=== PATIENT | female | born 1975 | race Caucasian/White ===

== ENCOUNTER → 2016-03-26 | Outpatient (REF) ==
[~2016-03-26] MED LIST: CLEOCIN HCL300 MG PO; LEVEMIR100 U/ML SQ; LORTAB 5/500 501 TAB PO; NEURONTIN300 MG/CAP PO; NO HOME MEDICATIONS; NORCO 325 MG-51 TAB PO; VITAMIN D 400400 IU PO; ZYRTEC 10MG10 MG PO
[2016-03-26 15:44] LABS: THYROID STIMULATING HORMONE 2.43 uIU/mL (0.465-4.680)
== END ==
LOC: ZLAB.WCH 14:52
PROVIDERS: Family Medicine
DX: Z01.89 Encounter for other specified special examinations (principal)

== ENCOUNTER 2018-11-17 11:35 | Emergency (ER) | payer SELFPAY ==
[~2018-11-17] VITALS: Ht 162.6 cm; Wt 63.6 kg
[2018-11-17 11:45] VITALS: BP 164/92; TEMP 98.4
[2018-11-17] MEDS ORDERED: NOVOLOG FLEX100 U/ML SQ (12:00)
[2018-11-17] MEDS ORDERED: LANTUS100 U/ML SQ (12:00)
[2018-11-17] MEDS ORDERED: MULTI VITAMINS1 TAB PO (12:01)
[2018-11-17] MEDS ORDERED: CEPHALEXIN500 M1 PO (12:02)
[2018-11-17] MEDS ORDERED: DOXYCYCLINE 10100 MG PO (12:02)
[2018-11-17 13:10] VITALS: PULSE 64
== END 2018-11-17 13:11 | disposition home or self-care (01) ==
LOC: COL.ER 11:35
DX: L03.116 Cellulitis of left lower limb (principal); F17.210 Nicotine dependence, cigarettes, uncomplicated; E10.9 Type 1 diabetes mellitus without complications
CPT/HCPCS: J0696

== ENCOUNTER 2019-01-06 08:14 | Emergency (ER) | payer SELFPAY ==
[~2019-01-06] VITALS: Ht 162.6 cm; Wt 65.9 kg
[~2019-01-06 08:14] MED LIST changes: +CEPHALEXIN500 M1 PO; +DOXYCYCLINE 10100 MG PO; +LANTUS100 U/ML SQ; +MULTI VITAMINS1 TAB PO; +NOVOLOG FLEX100 U/ML SQ
[2019-01-06 08:21] VITALS: TEMP 97.4
[2019-01-06 08:36] LABS: COLLECTION METHOD CLEAN CATCH
[2019-01-06 08:42] LABS: MUCOUS Present /lpf; PH 6 (5-8); URINE APPEARANCE Hazy; URINE BACTERIA None Seen /hpf; URINE BILIRUBIN Negative (NEGATIVE); URINE BLOOD Negative (NEGATIVE); URINE COLOR Yellow; URINE GLUCOSE 3+ (NEGATIVE); URINE KETONE Negative (NEGATIVE); URINE LEUKOCYTE ESTERASE Negative (NEGATIVE); URINE NITRATE Negative (NEGATIVE); URINE PROTEIN(semi-quant) 1+ (NEGATIVE); URINE RBC 0-2 /hpf; URINE UROBILINOGEN Negative (NEGATIVE)
[2019-01-06 09:06] LABS: BASO % 0.3 % (0.0-2.0); EOS # 0.3 (0.0-0.7); EOS % 2.7 % (0-4.0); GRAN # 6.6 (1.4-6.5); GRAN % 71.6 % (42.2-75.2); HEMATOCRIT 43.1 % (37.0-47.0); HEMOGLOBIN 14.5 g/dl (12.5-16.0); LYMPH # 1.7 (1.2-3.4); LYMPH % 18.5 % (20.0-51.0); MEAN CELL VOLUME 82 fl (80.0-100.0); MEAN CORPUSCULAR HEMOGLOBIN 28 pg (27.0-31.0); MEAN CORPUSCULAR HGB CONC 34 g/dl (33.0-37.0); MONO # 0.6 (0.1-0.6); MONO % 6.6 % (1.7-9.3); PLATELET COUNT 207 K/mm3 (130-400); RED BLOOD COUNT 5.25 M/mm3 (4.10-5.30); REDCELL DISTRIBUTION WIDTH-CV 12.1 % (11.5-14.5)
[2019-01-06 09:19] LABS: ALANINE AMINOTRANSFERASE 14 U/L (9-52); ALKALINE PHOSPHATASE 68 U/L (50-136); ANION GAP 8 mmol/L (7-16); AST,SGOT 18 U/L (15-37); BILIRUBIN,TOTAL 0.2 mg/dL (0.0-1.0); BLOOD UREA NITROGEN 19 mg/dL (7-17); CALCIUM 9.4 mg/dL (8.4-10.2); CARBON DIOXIDE 26 mmol/L (22-30); CHLORIDE 102 mmol/L (98-107); CREATININE, serum 0.85 (0.52-1.25); GLUCOSE 202 mg/dL (74-106); POTASSIUM 4.5 mmol/L (3.4-5.0); SODIUM 136 mmol/L (137-145); TOTAL PROTEIN 6.9 gm/dL (6.4-8.2)
[2019-01-06 09:21] LABS: C-REACTIVE PROTEIN < 0.5 mg/dL (0.0-0.9)
[2019-01-06 10:12] VITALS: BP 135/69; PULSE 92
== END 2019-01-06 10:12 | disposition home or self-care (01) ==
LOC: COL.ER 08:14
PROVIDERS: Physician Assistant
DX: R53.81 Other malaise (principal); J98.01 Acute bronchospasm; E10.9 Type 1 diabetes mellitus without complications; Z88.2 Allergy status to sulfonamides; F17.210 Nicotine dependence, cigarettes, uncomplicated
CPT/HCPCS: J1100; J2405; J7030

== ENCOUNTER → 2019-01-22 | Outpatient (CLI) | payer OTHER | LOC: COL.RAD 10:00 | DX: R05 Cough (principal); R91.8 Other nonspecific abnormal finding of lung field; F17.200 Nicotine dependence, unspecified, uncomplicated; Z90.49 Acquired absence of other specified parts of digestive tract | CPT/HCPCS: Q9967 ==

== ENCOUNTER → 2019-08-31 | Outpatient (CLI) | payer SELFPAY | LOC: COL.RAD 12:21 | DX: M48.061 Spinal stenosis, lumbar region without neurogenic claudication (principal); G95.9 Disease of spinal cord, unspecified ==

== ENCOUNTER 2019-10-10 00:33 | Emergency (ER) | payer SELFPAY ==
[~2019-10-10] VITALS: Ht 162.6 cm; Wt 68.0 kg
[2019-10-10 00:38] VITALS: TEMP 98.3
[2019-10-10 01:02] LABS: COLLECTION METHOD CLEAN CATCH
[2019-10-10 01:21] LABS: ALANINE AMINOTRANSFERASE 16 U/L (4-34); ALKALINE PHOSPHATASE 104 U/L (50-136); ANION GAP 7 mmol/L (7-16); AST,SGOT 19 U/L (15-37); BILIRUBIN,TOTAL 0.4 mg/dL (0.0-1.0); BLOOD UREA NITROGEN 19 mg/dL (7-17); C-REACTIVE PROTEIN 1.2 mg/dL (0.0-0.9); CALCIUM 9.5 mg/dL (8.4-10.2); CARBON DIOXIDE 26 mmol/L (22-30); CHLORIDE 96 mmol/L (98-107); CREATININE, serum 0.81 (0.52-1.25); POTASSIUM 4.2 mmol/L (3.4-5.0); SODIUM 129 mmol/L (137-145)
[2019-10-10 01:30] LABS: BASO % 0.4 % (0.0-2.0); EOS # 0.3 (0.0-0.7); EOS % 2.8 % (0-4.0); GRAN % 64.4 % (42.2-75.2); HEMATOCRIT 43.9 % (37.0-47.0); HEMOGLOBIN 15.1 g/dl (12.5-16.0); LYMPH # 2.8 (1.2-3.4); LYMPH % 25.7 % (20.0-51.0); MEAN CELL VOLUME 83 fl (80.0-100.0); MEAN CORPUSCULAR HEMOGLOBIN 29 pg (27.0-31.0); MEAN CORPUSCULAR HGB CONC 34 g/dl (33.0-37.0); MONO # 0.7 (0.1-0.6); MONO % 6.3 % (1.7-9.3); PLATELET COUNT 188 K/mm3 (130-400); RED BLOOD COUNT 5.27 M/mm3 (4.10-5.30); REDCELL DISTRIBUTION WIDTH-CV 12.5 % (11.5-14.5)
[2019-10-10 01:34] LABS: ACETAMINOPHEN < 10 ug/mL (10-30); ALCOHOL(ethanol),MEDICAL < 10 mg/dL; GLUCOSE 525 mg/dL (74-106); PROLACTIN 17.8 ng/mL (3.0-18.6); SALICYLATE < 1.0 mg/dL
[2019-10-10 01:35] LABS: MUCOUS Present /lpf; PH 6 (5-8); URINE APPEARANCE Clear; URINE BACTERIA None Seen /hpf; URINE BILIRUBIN Negative (NEGATIVE); URINE BLOOD 1+ (NEGATIVE); URINE COLOR Straw; URINE GLUCOSE 3+ (NEGATIVE); URINE KETONE Negative (NEGATIVE); URINE LEUKOCYTE ESTERASE Negative (NEGATIVE); URINE NITRATE Negative (NEGATIVE); URINE PROTEIN(semi-quant) 2+ (NEGATIVE); URINE RBC 0-2 /hpf; URINE UROBILINOGEN Negative (NEGATIVE)
[2019-10-10 01:45] LABS: TROPONIN-I 0.013 ng/mL (0.000-0.035)
[2019-10-10 01:46] LABS: TRICYCLIC ANTIDEPRESS URINE NEGATIVE
[2019-10-10 01:57] LABS: INR 0.9 (0.8-3.0); PROTHROMBIN TIME 9.9 SECONDS (9.7-12.8)
[2019-10-10 03:16] VITALS: BP 129/76; PULSE 56
== END 2019-10-10 03:35 | disposition short-term general hospital (02) ==
LOC: COL.ER 00:33
PROVIDERS: Emergency Medicine
DX: R56.9 Unspecified convulsions (principal); E11.9 Type 2 diabetes mellitus without complications; Z79.4 Long term (current) use of insulin; Z20.828 Contact with and (suspected) exposure to other viral communicable diseases
CPT/HCPCS: J1815; J1953; J2060; J7030; Q9967

== ENCOUNTER 2020-01-13 13:57 | Inpatient (IN) | payer OTHER ==
[~2020-01-13] VITALS: Ht 172.7 cm; Wt 70.7 kg
--- NOTE | 2020-01-13 | NUR ---
TELE STARTED. ACCUCHECK 202. SSI GIVEN.
[2020-01-13 14:37] LABS: BASO % 0.4 % (0.0-2.0); EOS # 0.4 (0.0-0.7); EOS % 3.6 % (0-4.0); GRAN # 7.7 (1.4-6.5); GRAN % 72.9 % (42.2-75.2); HEMATOCRIT 41.8 % (37.0-47.0); HEMOGLOBIN 14.2 g/dl (12.5-16.0); LYMPH # 1.9 (1.2-3.4); LYMPH % 18.1 % (20.0-51.0); MEAN CELL VOLUME 84 fl (80.0-100.0); MEAN CORPUSCULAR HEMOGLOBIN 28 pg (27.0-31.0); MEAN CORPUSCULAR HGB CONC 34 g/dl (33.0-37.0); MEAN PLATELET VOLUME 10.5 fl (7.4-10.4); MONO # 0.5 (0.1-0.6); MONO % 4.5 % (1.7-9.3); PLATELET COUNT 251 K/mm3 (130-400); REDCELL DISTRIBUTION WIDTH-CV 12.8 % (11.5-14.5)
[2020-01-13 14:56] LABS: ALANINE AMINOTRANSFERASE 24 U/L (4-34); ALBUMIN 3.5 gm/dL (3.5-5.0); ALKALINE PHOSPHATASE 91 U/L (50-136); ANION GAP 4 mmol/L (7-16); AST,SGOT 33 U/L (15-37); BILIRUBIN,TOTAL 0.4 mg/dL (0.0-1.0); BLOOD UREA NITROGEN 13 mg/dL (7-17); CALCIUM 9.1 mg/dL (8.4-10.2); CARBON DIOXIDE 29 mmol/L (22-30); CHLORIDE 101 mmol/L (98-107); CREATININE, serum 0.75 (0.52-1.25); GLUCOSE 246 mg/dL (74-106); POTASSIUM 4.7 mmol/L (3.4-5.0); SODIUM 134 mmol/L (137-145); TOTAL PROTEIN 6.2 gm/dL (6.4-8.2)
[2020-01-13 15:01] LABS: ALCOHOL(ethanol),MEDICAL < 10 mg/dL
[2020-01-13 15:13] LABS: TROPONIN-I < 0.012 ng/mL (0.000-0.035)
[2020-01-13 15:26] LABS: TSH w REFLEX 0.643 uIU/mL (0.465-4.680)
[2020-01-13 16:52] LABS: COLLECTION METHOD CLEAN CATCH
[2020-01-13 17:00] LABS: PH 6 (5-8); SQUAMOUS EPITHELIAL None Seen /hpf; URINE APPEARANCE Clear; URINE BACTERIA None Seen /hpf; URINE BILIRUBIN Negative (NEGATIVE); URINE BLOOD Negative (NEGATIVE); URINE COLOR Yellow; URINE GLUCOSE 3+ (NEGATIVE); URINE KETONE Negative (NEGATIVE); URINE LEUKOCYTE ESTERASE Negative (NEGATIVE); URINE NITRATE Negative (NEGATIVE); URINE PROTEIN(semi-quant) 2+ (NEGATIVE); URINE RBC 0-2 /hpf; URINE UROBILINOGEN Negative (NEGATIVE)
[2020-01-13 17:20] LABS: TRICYCLIC ANTIDEPRESS URINE NEGATIVE
[2020-01-13] MEDS ORDERED: ZOLOFT 100MG100 MG PO (20:40)
[2020-01-13] MEDS ORDERED: LIPITOR 40MG TA40 MG PO (20:40)
[2020-01-13] MEDS ORDERED: NEURONTIN100 MG/CAP PO (20:40)
[2020-01-13] MEDS ORDERED: KEPPRA 500MG500 MG PO (20:41)
[2020-01-13] MEDS ORDERED: PRINIVIL5 MG PO (20:41)
[2020-01-13] MEDS ORDERED: BUSPAR DIVIDOSE15 MG PO (20:42)
[2020-01-13] MEDS ORDERED: ASPIRIN 81M81 MG/TA2 PO (20:42)
[2020-01-13] MEDS ORDERED: LEVEMIR100 U/ML SQ (20:45)
--- NOTE | 2020-01-13 23:34 | NUR ---
PT ADMITTED PER BED TO ROOM 325 FROM ER. PT SLEEPING. NO RESP DISTRESS. THIS NURSE PROVIDING 1:1 CARES D/T CONFUSION. CALL LIGHT IN REACH. BED ALARM SET.PT CONTINUES SLEEPING.
[2020-01-13 23:56] LABS: MAGNESIUM 1.9 mg/dL (1.6-2.3); PHOSPHOROUS 3.8 mg/dL (2.5-4.5)
--- NOTE | 2020-01-14 00:13 | NUR ---
NOTIFIED LUIS ALFREDO GO OF PHOS/ MAG RESULTS ORDERED.
[2020-01-14 00:45] VITALS: BP 165/83; PULSE 61; TEMP 97.6
--- NOTE | 2020-01-14 01:41 | NUR ---
PT RESTLESS AT TIMES BUT RETURNS TO SLEEP. PT REFUSES TO WEAR MASK WHILE 1:1 SITTER-RN IN ROOM.
[2020-01-14 04:19] VITALS: BP 171/73; PULSE 62; TEMP 97.6
--- NOTE | 2020-01-14 05:39 | NUR ---
PT STILL SLEEPING WITH OCCASIONAL AWAKENES AND RETURNS TO SLEEP. ABLE TO TUCK ARMS UNDERNEATH HER WHEN ATTEMPTING B/P OR ACCUCHECK. PT PULLS B ACK WITH NEURO ASSESSMENT WITH LIGH OF RT EYE AND NO RESPONSE TO LT EYE. STRETCHES OUT BOTH LEGS PERIODICALLY IN BED WHEN REPOSITIONING. EYES WILL BARELY OPEN WITH PAINFUL STIMULI BUT PULLS AWAY, PT HAS REMAINED NPO. HAS NOT VOIDED YET. IV STILL INFUSING TO RT HAND. SECURED SITE WITH COBAN. HAS 1:1 NURSE SITTING WITH HER. NO DISTRESS NOTED.
[2020-01-14 08:00] VITALS: BP 126/75; PULSE 61; TEMP 98.2
--- NOTE | 2020-01-14 08:00 | NUR ---
VSS. HEAD TO TOE ASSESSMENT DONE, SEE NOTES. PT LAYING IN BED. DOES NOT RESPOND WHEN QUESTIONED. MOVES AWAY FROM STIMULUS AND REPOSITIONS SELF. TRIED GIVING AM MEDS, PT WOULD NOT AROUSE, WILL TRY AGAIN LATER. PT NPO FOR MRI LATER TODAY. PT HAS PADDING ON BED RAILS FOR SEIZURE PRECAUTIONS. BLADDER SCAN DONE BECAUSE NOT VOIDING, 185 NOTED. SITTER IN ROOM. CALL LIGHT IN REACH.
--- NOTE | 2020-01-14 09:10 | NUR ---
HOSPITALIST CARE TEAM ROUNDING. PATIENT WILL OCCATIONALLY SPONTANIOUSLY OPEN HER EYES OR REPOSITION HERSELF HOWEVER, WILL NOT TALK, INTERACT, OR COOPERATE. PATIENT JUST SLEEPS. NURSING TRIED TO GIVE HER SCHEDULED MEDS, PATIENT WOULD NOT OPEN HER MOUTH AND TURNED AWAY. WILL TRY AGAIN LATER.
--- NOTE | 2020-01-14 10:37 | NUR ---
DADA attended clinical rounds. The patient was sleeping and would not answer questions. SW contacted the patient's fiance, Edna Suárez (ph#[phone]), to discuss discharge plan. Edna reports that the patient and her are engaged. They live in [place]. Edna reports that the patient is independent with ADLs and she does not have any DME. She sometimes helps the patient wash her back. Edna states that the patient started outpatient PT this week at [place]. The patient receives primary care at [facility] and she receives her medications from [facility]. The patient is self pay. Edna reports that the patient has already applied for Medicaid and disability. Financial Counseling was consulted and confirmed the patient is pending disability. Edna reports that the patient does not have a DPOA-HC completed. She states that the patient is not , does not have any children, her parents are not alive, and she has no siblings. She states that the patient just has her and an aunt. Edna states that she is unsure of what the aunt's name is right now, but that the aunt is not doing well. Edna reports no concerns with the patient returning back home with her upon discharge. She states that they plan on continuing outpatient PT at [facility] upon discharge and already have a follow up appointment scheduled there. SW to continue to follow.
[2020-01-14 11:00] VITALS: BP 152/67; PULSE 60; TEMP 97.5
--- NOTE | 2020-01-14 11:40 | NUR ---
PATIENT GOING DOWN TO MRI
--- NOTE | 2020-01-14 12:11 | NUR ---
PATIENT BACK FROM MRI
--- NOTE | 2020-01-14 14:41 | NUR ---
Patient did not respond or follow commands during EEG, however, once EEG was finished patient did sit up when asked and seemed less confused. Patient then told this GARBAGE TRUCK DRIVER that she needed to use the restroom and wanted the TV on. SHREDDER/GRANULATOR OPERATOR in room at this time to help. Wilbert Patterson, GARBAGE TRUCK DRIVER
[2020-01-14 16:32] VITALS: BP 158/72; PULSE 62; TEMP 97.4
--- NOTE | 2020-01-14 19:48 | NUR ---
PATIENT UP OUT OF BED, PARTIAL TO BATHROOM, STATING NEEDING TO URINATE, PUT PATIENT ON BSC , TELE IN PLACE STILL WITH IVF INFUSING WITHOUT DISRUPTION. BED ALARM ON AND LOUD/FUNCTIONING. PATIENT VERBALIZED SINGLE SENTENCE "I NEED TO GO TO THE BATHROOM" WITH NO FURTHER VOCALIZATIONS FROM PATIENT DESPITE QUESTIONS FROM STAFF.
--- NOTE | 2020-01-14 20:00 | NUR ---
Assessment complete. Patient has impulsively gotten out of bed, setting off bed alarm, to use the restroom. Gait is unsteady but she is able to be assisted to [facility] where she voids 700 ml. Patient is very confused, calling out for her partner, Edna and her dog Santiago. Edna is contacted via telephone and attempts to calm patient down with no success. At this time, patient is becoming increasingly agitated and begins to wave her arms at this RN. A one time ativan order is obtained.
[2020-01-14 20:17] VITALS: BP 167/73; PULSE 60; TEMP 98.2
[2020-01-15] VITALS (7 sets, daily range): BP systolic 158–188; BP diastolic 60–84; PULSE 59–71; TEMP 97.3–98.3
[2020-01-15 11:50] LABS: ALBUMIN 3.1 gm/dL (3.5-5.0); BILIRUBIN,TOTAL 0.4 mg/dL (0.0-1.0); CALCIUM 8.5 mg/dL (8.4-10.2); CREATININE, serum 0.59 (0.52-1.25); POTASSIUM 3.8 mmol/L (3.4-5.0); TOTAL PROTEIN 5.8 gm/dL (6.4-8.2)
[2020-01-15 11:54] LABS: HEMATOCRIT 40.8 % (37.0-47.0); HEMOGLOBIN 13.6 g/dl (12.5-16.0); MEAN CELL VOLUME 84 fl (80.0-100.0); MEAN CORPUSCULAR HEMOGLOBIN 28 pg (27.0-31.0); MEAN CORPUSCULAR HGB CONC 33 g/dl (33.0-37.0); MEAN PLATELET VOLUME 10.6 fl (7.4-10.4); PLATELET COUNT 237 K/mm3 (130-400); RED BLOOD COUNT 4.88 M/mm3 (4.10-5.30); REDCELL DISTRIBUTION WIDTH-CV 12.7 % (11.5-14.5)
--- NOTE | 2020-01-15 12:30 | NUR ---
Patient slept all morning, minimally interactive with staff, now Patient awake. Gear Machine Operator General assisted patient to bedside commode. She voided. was able to understand how to use commode. Then this nurse at bedside & attempted to assist patient with pureed lunch. Patient refused. Attempted to give ordered medications whole and then crushed. Patient refused and spit them back at staff. Made hospitalist aware. Patient aggitated. high fall risk followed.
--- NOTE | 2020-01-15 13:45 | NUR ---
Patient up to chair, very restless. Calling for Mick. Attempt to re oriented. Patient not aware of where she is, can not state her birthday. ASA Suppository given, since patient refused pills. Iv apresoline for elevated BP. Cnas sitting with patient to prevent her from falling. Patietn keeps spiting on the floor. Asked her to please stop. She is also coughing, trying hard to keep mask on patint, but she is not compliant.
--- NOTE | 2020-01-15 15:30 | NUR ---
Patient continues to be restless and aggitated. She is now hitting at staff, being combative. Spiting at staff, Biting at her IV. Hospitalist notified, Shell aware that she is now a safety hazard to herself & staff. Low dose ativan order given. This nurse remains at bedside for patient safety. Patient remains unoriented. Continues to call out for Edna & Santiago. Attempt to oriented unsuccessful. Offered food, no interest. Will continues to closely monitor & follow fall risk protocol.
--- NOTE | 2020-01-15 16:10 | NUR ---
Cony sitting at edge of bed. Continues to call out for Edna & Santiago. Refuses to lay down. She remain not oriented. Nurse at bedside for high fall risk prevention.
--- NOTE | 2020-01-15 17:50 | NUR ---
Patient sitting up in bed. yelling out. cursing at staff. Refuses food.
--- NOTE | 2020-01-15 19:21 | NUR ---
CHANGE OF SHIFT REPORT FROM DAY SHIFT NURSE.
--- NOTE | 2020-01-15 20:00 | NUR ---
PATIENT AGITATED, CONFUSED AND NOT COOPERATIVE WELL VERBALIZING ABUSIVE LANGUAGE/CURSING. DOES NOT FOLLOW COMMANDS AT TIMES, PATIENT IS RESISTIVE TO SAFETY MEASURES, STANDING UP, NOT CALLED FOR HELP, ATTEMPTING TO HEAD BUTT STAFF, VERBALIZING VIOLENCE WITH STAFF SITTING WITH PATIENT. IVF TO R HAND INFUSING. TELE IN PLACE. PATIENT ON ROOM AIR.
[2020-01-16 03:58] VITALS: BP 131/68; PULSE 64; TEMP 98.1
--- NOTE | 2020-01-16 07:16 | NUR ---
CHANGE OF SHIFT REPORT GIVEN TO DAY SHIFT NURSEMISSY.
--- NOTE | 2020-01-16 10:50 | NUR ---
Patient up to bedside commode, voided. Attempted to feed her. She refused. Attmpted to give PO am medication & she spit them back out at staff . Hosptalist team rounded and made aware. Continue to follow high fall risk protocol. Patient not oriented to time or place, not able to state her birthday. Patient contines to yell out for Santiago & Edna. unsuccessful at re orienting.
--- NOTE | 2020-01-16 11:23 | NUR ---
SW update was about to make contact with Life partner Edna [phone]. Discussed changes to care and need for placement. Educated patient on placement options. LP reports that she wants the patient placed in town. LP indicated that they do not have the finances to support the patient going to placement. Educated on financial coach support and making referral to . Send refferals to [facility], [facility], and [facility]. Covid Swab today. LP refused placement outside of [facility]. DADA educated what that looks like. Will continue to follow.
[2020-01-16 12:49] VITALS: BP 168/70; PULSE 61; TEMP 97.7
--- NOTE | 2020-01-16 13:00 | NUR ---
Patient up to bedside commode, voided. Attempted to give bedbath, but swinging at staff. new linens on bed. Unable to change gown. Tried to give patinet lunch. she refused. She refused to drink and liquids as well. Attempted to call her partner, no answer. Spoke to partner earlier in the day and gave her an update on patient conditions.
--- NOTE | 2020-01-16 14:45 | NUR ---
Patient again becoming more aggitated & irritated with staff. Using curse words. Picking at her face, she made herself bleed. Prn Ativan given for patient & staff safety. Patient continues to refuse to wear her mask. Coughing at times. Covid swab pending.
[2020-01-16 15:39] VITALS: BP 137/82; PULSE 78; TEMP 97.3
--- NOTE | 2020-01-16 17:12 | NUR ---
Staff has remained at bedside this afternoon for patient safety. She has been sitting at the edge of the bed. She did speak to Edna on her cell phone this afternoon. Tele remains on. Bp improved this evening. Blood sugar stable. Ivf per orders to Iftikhar. She continues to talk out to Santiago & Edna. Yawning, she seems tired. Try to lay her down, but refuses. High fall risk protocol followed.
--- NOTE | 2020-01-16 19:03 | NUR ---
RECEIVED CHANGE OF SHIFT REPORT FROM DAY SHIFT NURSE.
--- NOTE | 2020-01-16 19:18 | NUR ---
Patient continues to be aggitated & irritated. Rosa villafuerte remains at bedside. She continues to sit at edge of bed calling out for Santiago & Edna. Patient bitting at staff. Mitts on at this time, to prevent her from pulling out her IV.
[2020-01-16 19:33] VITALS: BP 158/86; PULSE 70; TEMP 97.3
--- NOTE | 2020-01-16 20:00 | NUR ---
WHEN AWAKE, PATIENT COMBATIVE, SPITTING ON STAFF, REFUSES TO WEAR FACE MASK/FACE SHIEL. PATIENT ATTEMPTS TO BITE STAFF OR HITTING STAFF AND VERBALLY AGGRESSIVE AND ABUSIVE TO STAFF/D.O. SITTER. TELE IN PLACE. IV SITE IN PLACE TO BACK TO RIGHT HAND. PATIENT EARLIER ATTEMPTING TO PULL OUT IV SITE FROM BACK TO RIGHT HAND, ALLIE HAND MITTS APPLIED TO BOTH HANDS WHILE PATIENT HITTING AT STAFF AND PULLING AT IV LINE. PATIENT REFUSING TO TAKE SIPS OF ORAL LIQUIDS OR MEDS, SPITTING OUT LIQUIDS AT TIMES AT STAFF. WHEN AWAKE PATIENT CONSTANTLY MOVING AROUND IN BED, SITTING UP AT SIDE OF BED UNDER STAFF SUPERVISION, PATIENT VERBALLY REFUSING TO HAVE STAFF TOUCH HER AT TIMES RARELY ASKING STAFF TO HELP HER LAY DOWN OR GET MOVED UP IN BED.
--- NOTE | 2020-01-17 01:30 | NUR ---
PATIENT SLEEPING CURRENTLY, FSBS AND VS NOT DONE DUE TO PATIENT SLEEPING AND ONGOING COMBATIVE/AGGRESSIVE/AGITATED BEHAVIORS SINCE THEIR ADMISSION TO PROMOTE PATIENT REST AND SAFETY.
[2020-01-17 04:00] VITALS: BP 124/71
--- NOTE | 2020-01-17 04:00 | NUR ---
PATIENT'S LIFE PARTNER, CHEVY, CALLED FOR UPDATED PATIENT STATUS, INFORMED OF PATIENT, STILL NOT TAKING ORAL MEDS, CONTINUES WITH IV KEPPRA AND IV FLUIDS, THAT PATIENT IS NOT DRINKING PO FLUIDS CONSISTANTLY, ENCOURAGED LIFE PARTNER TO CALL BACK WHEN PROVIDERS HAVE ROUNDED AND CAN BE AVAILABLE TO ANSWER HER QUESTIONS REGARDING PATIENT'S PROGNOSIS/PROGRESS/DISCHARGE PLANNING.
--- NOTE | 2020-01-17 07:14 | NUR ---
CHANGE OF SHIFT REPORT GIVEN TO DAY SHIFT NURSEHOMERO.
[2020-01-17 08:06] VITALS: BP 144/66; PULSE 83; TEMP 98.2
--- NOTE | 2020-01-17 09:00 | NUR ---
CAME TO CONSULT ON AMS. SEE ORDERS.
[2020-01-17 12:00] VITALS: BP 137/62; PULSE 78; TEMP 97.2
--- NOTE | 2020-01-17 14:50 | NUR ---
Unable to speak with pt at all. She is being very verbal and resisting care at this time. Hx of striking out, spitting. I am advised that life partner works nights so encouraged to wait until later in the afternoon to contact her. From information given, it does not appear that pt has living relatives involved in her life at all. Will seek clarification from social work administrator.
--- NOTE | 2020-01-17 14:50 | NUR ---
PATIENT INCREASINGLY AGGITATED AT TIMES. PATIENT YELLING OUT FOR HER MOM AND . PATIENT IS CONFUSED AND WONT ANSWER QUESTIONS. PATIENT KEEPS TRYING TO GET OUT OF BED AND PULLS AT IV. IV SITE COVERED IN COBAN. SITTER AT BEDSIDE.
--- NOTE | 2020-01-17 15:37 | NUR ---
Spoke with life partner Edna Suárez by phone with Yuki LEO and Avelina Marrero RN on the line. We explained to Edna that Nazia has been quite agitated this afternoon. Edna replied that "I called her and was talking with her when she asked me to come get her, I told her 'in good time' and she hung up on me". She a Nazia have been together for about 3 years. I asked her if Nazia had ever talked about what she might want in a situation like this. Edna replied that Nazia had told her she would not want to go to a mcc--she would want to be at home. She also reported that Nazia had not wanted any tubes placed in her abdomen for feeding. She had said earlier, before this stroke, that she would rather than go to a mcc. Edna is aware that Nazia situation has changed from the previous stroke and states "I am not sure what she would want at this time". She does verify that Edna has no living relatives in her life at this point. She did respond that she would be willing to be a guardian for Nazia, if that was needed. We will wait for the psych consult before pursuing further action on this.
[2020-01-17 16:00] VITALS: BP 145/88; PULSE 71; TEMP 97.5
--- NOTE | 2020-01-17 16:47 | NUR ---
Resource Center Teacher and Avelina Palliative RN contacted patient's life partner, Edna to discuss goals of care. See palliative note for further detail. DADA advised Edna that she followed up with each local SNF: [facility], [facility], and [facility] and all three have declined referral. DADA advised Edna that referrals will have to be sent out of town and Edna verbalized understanding. DADA also advised Edna that a psych consult had been ordered to determine capacity. Edna advised that if patient would need a court appointed guardian, that she would be willing to fill that role. DADA spoke with RN, Blanca who reports that per Dr. Todd, Psychiatrist, patient will need court appointed guardian. DDAA emailed Thom Quinones, consumer attorney and notified Sima, Paediatric Thoracic Physician. DADA also faxed referrals to [facility], [facility], and [facility]. DADA will follow up with additional referrals tomorrow. DADA collaborated with Ember Financial Counselor who advised patient's partner, Edna has applied for Medicaid for patient. DADA will continue to follow.
[2020-01-17 18:22] VITALS: BP 145/88; PULSE 71; TEMP 97.5
[2020-01-17 20:09] VITALS: BP 159/85; PULSE 74; TEMP 97.3
--- NOTE | 2020-01-17 20:45 | NUR ---
Pt. laying in bed with sitter at bedside. Pt. is alert and confused. Shift assessment complete. IV to lt. forearm patent, IV fluids infusing per orders. Pt. does not appear to be in pain at this time. Call light within reach, bed alarm on.
[2020-01-18 04:00] VITALS: BP 112/40
[2020-01-18 06:32] LABS: BASO % 0.2 % (0.0-2.0); EOS # 0.3 (0.0-0.7); EOS % 2.7 % (0-4.0); GRAN # 7.7 (1.4-6.5); GRAN % 74.4 % (42.2-75.2); HEMOGLOBIN 12.5 g/dl (12.5-16.0); LYMPH # 1.7 (1.2-3.4); LYMPH % 16.2 % (20.0-51.0); MEAN CELL VOLUME 83 fl (80.0-100.0); MEAN CORPUSCULAR HEMOGLOBIN 28 pg (27.0-31.0); MEAN CORPUSCULAR HGB CONC 34 g/dl (33.0-37.0); MEAN PLATELET VOLUME 10.1 fl (7.4-10.4); MONO # 0.6 (0.1-0.6); MONO % 6.2 % (1.7-9.3); PLATELET COUNT 219 K/mm3 (130-400); RED BLOOD COUNT 4.41 M/mm3 (4.10-5.30); REDCELL DISTRIBUTION WIDTH-CV 12.6 % (11.5-14.5)
[2020-01-18 06:39] LABS: CALCIUM 8.7 mg/dL (8.4-10.2); CREATININE, serum 0.56 (0.52-1.25); POTASSIUM 3.3 mmol/L (3.4-5.0)
[2020-01-18 06:41] LABS: HEMATOCRIT 36.4 % (37.0-47.0)
[2020-01-18 08:00] VITALS: BP 145/73; PULSE 71; TEMP 97.8
--- NOTE | 2020-01-18 11:31 | NUR ---
PT COMBATIVE THIS AM. ABLE TO CALM DOWN BY WALKING TEJEDA LOOPS SEVERAL TIMES. AND TEAM ROUNDED. SEE COMPUTER FOR ORDERS. PT IS ALERT BUT CONFUSED. CONSULTED YESTERDAY. INVESTMENT ANALYST ATTEMPTING TO FACILITATE GAURDIANSHIP FOR PT. PROCESS HAS BEGUN. ONCE ESTABLISHED PLAN ON DISCHARGE TO A REHAB FACILITY.
[2020-01-18 11:32] VITALS: BP 151/76; PULSE 69; TEMP 98
--- NOTE | 2020-01-18 13:38 | NUR ---
Pt observed several times today and seems to be talking more but not making a lot of sense. She was screaming out Edna's name into her phone but no one was on the line. Her gait is very broadbased and irregular with her therapist having to keep her from falling several times. She was refusing both food and beverage earlier this morning. After her previous stroke, she reportedly had told Edna that she did not want to go to a long term--would rather . She had also made it clear to Edna that she did not want a tube in her abdomen although I am not sure how she is feeling now. The process of getting a gaurdian named for Nazia has begun. At this point it seems very unlikely that pt would be able to return home.
[2020-01-18 16:00] VITALS: BP 177/78; PULSE 75; TEMP 97.6
--- NOTE | 2020-01-18 16:38 | NUR ---
Loan Adviser contacted patient's partner, Edna to assist in completing Guardianship Questionairre for patient. Edna provided as much information as she had available. Edna did indicate that patient was the one who submitted a Medicaid Application for herself, so Edna does not know when this was submitted. Edna states patient has not received any letters from [employer] at this time. Edna did state that patient has received correspondence from Social Security requesting additional information. DADA emailed completed Guardianship Questionairre to Thom Quinones, [employer] Sales And Marketing Intern and Senior Advisor. DADA provided Report and Examination paperwork to Hospitalist. DADA contacted [facility] and was advised by Chata that they cannot meet patient's needs. DADA also spoke with Omayra at [facility] who advised they cannot meet patient's needs[facility] was advised they cannot [facility] at this time. DADA faxed additional referrals to [facility], [facility], [facility], [facility], and [facility]. DADA will continue to follow up with facilities on referrals.
--- NOTE | 2020-01-18 16:43 | NUR ---
PT BECOMMING VERY AGITATED PACING HALLS AND FIGHTING WITH STAFF. IV ATIVAN GIVEN ORDERED. BACK IN ROOM AT THIS TIME.
--- NOTE | 2020-01-18 20:40 | NUR ---
Pt. sitting up at bedside with sitter at bedside. Pt. is alert confused. IV to lt. forearm patent, IV fluids infusing per orders. Pt. did agree to take evening meds. Pt. denies pain or other needs, call light within reach. Sitter to remain at bedside.
[2020-01-18 20:44] VITALS: BP 174/96; PULSE 75; TEMP 97.8
[2020-01-19 00:45] VITALS: BP 168/84; PULSE 83; TEMP 98.2
[2020-01-19 04:00] VITALS: BP 155/74; PULSE 69; TEMP 97.7
[2020-01-19 06:17] LABS: BASO % 0.2 % (0.0-2.0); EOS # 0.2 (0.0-0.7); EOS % 2.3 % (0-4.0); GRAN # 6.2 (1.4-6.5); GRAN % 72.9 % (42.2-75.2); HEMOGLOBIN 12.4 g/dl (12.5-16.0); LYMPH # 1.5 (1.2-3.4); LYMPH % 17.6 % (20.0-51.0); MEAN CELL VOLUME 83 fl (80.0-100.0); MEAN CORPUSCULAR HEMOGLOBIN 29 pg (27.0-31.0); MEAN CORPUSCULAR HGB CONC 35 g/dl (33.0-37.0); MEAN PLATELET VOLUME 10.8 fl (7.4-10.4); MONO # 0.6 (0.1-0.6); MONO % 6.6 % (1.7-9.3); PLATELET COUNT 188 K/mm3 (130-400); REDCELL DISTRIBUTION WIDTH-CV 12.7 % (11.5-14.5)
[2020-01-19 06:20] LABS: HEMATOCRIT 35.8 % (37.0-47.0)
[2020-01-19 06:33] LABS: CALCIUM 8.5 mg/dL (8.4-10.2); CREATININE, serum 0.58 (0.52-1.25); POTASSIUM 3.2 mmol/L (3.4-5.0)
--- NOTE | 2020-01-19 14:11 | NUR ---
Pt observed today being more calm and able to eat her breakfast and lunch without difficulty. Has been walking with PT with irregular wide-based gait and requires assistance as easily becomes off balanced. Has talked with Edna today by phone. We are waiting for guardianship to be completed through the courts and then we can move forward.
--- NOTE | 2020-01-19 16:26 | NUR ---
Air Valve Mechanic scanned and emailed Physician Exam and Report to attorneys, Thom Quinones and Rad Williamson. DADA spoke with Alia at [facility] who advised they cannot accept referral due to patient's behaviors. DADA also spoke with Sandi at [facility] who advised they also cannot accept referral at this time. DADA faxed additional referrals to [facility] and [facility]. Both facilities report they are full at this time but will still screen referral. DADA contacted Madiha at [facility] to discuss referral. Madiha advised they are on an admissions hold but are hopeful to be taking new admits soon. Madiha advised they do have a locked behavioral unit and can take people who are Medicaid/Disability Pending. Madiha stated they would require Guardianship to be established prior to considering an admit. DADA faxed referral to Madiha for review. DADA will continue to follow.
[2020-01-19 16:31] VITALS: BP 159/82; PULSE 72
--- NOTE | 2020-01-19 18:07 | NUR ---
Patient less aggitated today, she has been up multiple times and walked in the halls with CARD DEALER, gait unsteady. Gaitbelt used. High fall risk protocol followed. Patient has spoke on the phone to her significant other Edna. She has been tearful and upset she is unable to visit. Reviewed visitor policy with patient. Patient ate well at lunch, but refused dinner & breakfast. Patient took her pills today. Trying to get patient to complete her potassium protocol. Bessy ASENCIO order replacement today when she was nofitied of k+3.2. Int to [facility]. Vss. Additional lisinopril given & tolerated. Sitter has been used alot today. Social work assisting in discharge planning. Will report off to night nurse
[2020-01-19 19:37] VITALS: BP 159/77; PULSE 60; TEMP 98.3
--- NOTE | 2020-01-19 22:17 | NUR ---
PT IN BED WITH HOB ELEVATED TO 30 DEGREE ANGLE. PT REFUSES TO PARTICIPATE WHEN ASK TO DO A TASK AND HAS NOT SPOKEN. PT DENIES PAIN OR DISCOMFORT BY NODDING NO. PT RESTING AT THIS TIME. CALL LIGHT WITHIN REACH.
[2020-01-19 23:50] VITALS: BP 149/70; PULSE 65; TEMP 97.6
[2020-01-20 04:22] VITALS: BP 152/79; PULSE 58; TEMP 98
--- NOTE | 2020-01-20 04:56 | NUR ---
SHIFT SUMMARY: PT STAYED ASLEEP MOST OF THE NIGHT. PT DID AT BEGINNING OF SHIFT NOT LOOK AT ME OR COOPORATE WITH NEURO CHECKS, BUT IN THE MIDDLE OF THE SHIFT AROUND MIDNIGHT, SHE WAS MORE TALKATIVE AND COOPORATIVE, THEN IN THE MORNING AROUND 0400, SHE WAS FOLLOWING COMMANDS BUT DID NOT WANT TO TALK AGAIN. WHEN WHE WAS TALKING SHE EXPRESSED THAT SHE MISSED HER DOG AND LIVE-PARTNER. PT IS IN BED WITH CALL LIGHT WITHIN REACH AND BED ALARM ON. NO NEEDS AT THIS TIME. NO ISSUES THIS SHIFT.
[2020-01-20 06:19] LABS: BASO % 0.4 % (0.0-2.0); EOS # 0.3 (0.0-0.7); GRAN # 4.3 (1.4-6.5); GRAN % 59.9 % (42.2-75.2); HEMOGLOBIN 12.4 g/dl (12.5-16.0); LYMPH # 2.1 (1.2-3.4); LYMPH % 28.7 % (20.0-51.0); MEAN CELL VOLUME 84 fl (80.0-100.0); MEAN CORPUSCULAR HEMOGLOBIN 29 pg (27.0-31.0); MEAN CORPUSCULAR HGB CONC 35 g/dl (33.0-37.0); MEAN PLATELET VOLUME 10.9 fl (7.4-10.4); MONO # 0.5 (0.1-0.6); MONO % 6.7 % (1.7-9.3); PLATELET COUNT 199 K/mm3 (130-400); RED BLOOD COUNT 4.27 M/mm3 (4.10-5.30); REDCELL DISTRIBUTION WIDTH-CV 12.8 % (11.5-14.5)
[2020-01-20 06:24] LABS: HEMATOCRIT 35.8 % (37.0-47.0)
[2020-01-20 06:33] LABS: CALCIUM 8.9 mg/dL (8.4-10.2); CREATININE, serum 0.65 (0.52-1.25); POTASSIUM 3.4 mmol/L (3.4-5.0)
[2020-01-20 08:09] VITALS: BP 159/70; PULSE 67; TEMP 98.6
--- NOTE | 2020-01-20 10:29 | NUR ---
AM SHIFT ASSESSMENT COMPLETE. PATIENT REPORTING MILD DISCOMFORT AT INCISION SITES. ABDOMINAL LAP SITES DIRECTOR OF DIRECT MARKETING WITH EDGES WELL APPROXIMATED. [place] ARENAS PA-C CALLED AND NOTIFIED OF HOSPITALIST AND SURGEON SIGNING OFF. [place] TO ENTER DISCHARGE ORDERS.
[2020-01-20 11:58] VITALS: BP 159/79; PULSE 64; TEMP 97.7
--- NOTE | 2020-01-20 12:00 | NUR ---
PATIENT STARTED ON CLEAR LIQUID GASTRIC BYPASS DIET. PATIENT TOLERATING WELL AT THIS TIME. PATIENT REPORTS THAT SHE IS NOW BURPING.
--- NOTE | 2020-01-20 13:05 | NUR ---
NEURO CHECKS CHANGED TO ONCE PER SHIFT PER ORDER GIVEN FROM LUIS M COVARRUBIAS. ORDER CHANGED BY THIS NURSE.
[2020-01-20 16:21] VITALS: BP 156/73; PULSE 70; TEMP 98.1
--- NOTE | 2020-01-20 16:24 | NUR ---
Boiler Room Operator spoke with Rad Williamson, Modeler who advised they will submit for Guardianship either this afternoon or tomorrow morning. Patient's life partner, Edna will be granted temporary Guardianship once filed. DADA collaborated with Madiha at [facility] who advised they are still screening referral but could possibly be open for admissions for traumatic brain injuries early next week. DADA collaborated with Jana, Financial Counselor about Guardianship. Once Edna is granted temporary Guardianship, she will be able to sign releases so the financial team can contact [facility] about Medicaid application status. DADA contacted Edna to provide update. DADA advised that [facility] is considering referral. Edna felt that this placement may be too far away, as she feels patient needs to be able to have visitors. DADA explained that even if patient found more local placement, most to all local SNF's are not allowing visitors at this time. DADA also advised that at this time, has not had any accepting facilities in the local area. Edna verbalized understanding. DADA will continue to follow.
--- NOTE | 2020-01-20 17:19 | NUR ---
LUIS M COVARRUBIAS CALLED AND NOTIFIED THAT THE PATIENT IS TAKING IN ADEQUATE PO. TORB TO CHANGE BLOOD SUGAR CHECKS TO ACHS FROM LUIS M COVARRUBIAS TO THIS NURSE.
--- NOTE | 2020-01-20 18:45 | NUR ---
PATIENT HAD UNEVENTFUL SHIFT. NEURO CHECKS STABLE. PATIENT TOLERATING DIET WITHOUT DIFFICULTIES. PATIENT REMAINS IMPULSIVE. BED ALARMS ON. PATIENT CURRENTLY RESTING IN BED AT THIS TIME. WILL REPORT OFF TO ONCOMING NURSE.
[2020-01-20 19:31] VITALS: BP 156/63; PULSE 68; TEMP 98.2
--- NOTE | 2020-01-20 21:50 | NUR ---
Pt. sitting up in bed at this time. Pt. is alert and oriented to time, self and place. Pt. will also have conversations that do not make sense so some altered mental status still noted. Shift assessment complete. INT to lt. forearm patent. Pt. denies pain or other needs, call light within reach.
[2020-01-21 03:47] VITALS: BP 146/86; PULSE 56; TEMP 98.8
[2020-01-21 08:02] VITALS: BP 177/92; PULSE 63; TEMP 98.7
--- NOTE | 2020-01-21 08:15 | NUR ---
PATIENT SHIFT ASSESSMENT COMPLETE AND AM MEDICATIONS GIVEN. PATIENT DENIES PAIN THIS MORNING. NEURO CHECKS STABLE AND INTACT. PATIENT ANSWERS QUESTIONS APPROPRIATELY AND IS A&OX4 WITH SOME INTERMITTENT CONFUSION IN CONVERSATIONS. PATIENT AMBULATED WITH STAFF TO THE BATHROOM WITH SBA. PATIENT RETURNED TO BED, CALL LIGHT IN REACH. PATIENT DENIES ANY NEEDS AT THIS TIME.
[2020-01-21 08:47] LABS: MAGNESIUM 1.7 mg/dL (1.6-2.3)
[2020-01-21 11:20] VITALS: BP 135/68; PULSE 62; TEMP 98.1
--- NOTE | 2020-01-21 14:20 | NUR ---
PATIENT REPOSITIONED WITH PILLOW ELEVATING RLE AND ICE PACK APPLIED TO RIGHT HIP.
--- NOTE | 2020-01-21 15:44 | NUR ---
REQUEST FOR PATIENT PSYCHIATRIC RE-EVALUATION ON FRIDAY FAXED TO DR. LAWTON'S OFFICE PER LUIS M COVARRUBIAS'S REQUEST.
[2020-01-21 15:55] VITALS: BP 134/61; PULSE 58; TEMP 98.6
--- NOTE | 2020-01-21 16:36 | NUR ---
Drum Barker Operator faxed clinical updates to Madiha at [facility]. DADA also spoke with LUIS M Goff who advised that patient has made great improvement in orientation and is able to have a conversation with her. Shell advised that patient may be able to make her own medical decisions at this time. Psych follow up ordered and patient to be re-evaluated by Dr. Todd on Friday. DADA updated Thom Quinones, Environmental Quality Analyst and Rad Williamson, Environmental Quality Analyst.
[2020-01-21 20:43] VITALS: BP 146/69; PULSE 55; TEMP 98.2
--- NOTE | 2020-01-21 20:57 | NUR ---
PT MEDICATED WITH HS MEDS INCLUDING SEROQUEL FOR ANXIETY AND TYLENOL FOR HEADACHE. IS ALERT, ORIENTED X3. CONVERSATION OFF INTERMITTENTENLY AND TALKS OF SPOILING HER PUPPY FOR RENAN. SL TO LEFT FOREARM FLUSHES WELL. SEIZURE PRECAUTIONS IN PLACE. BED ALARM ON FOR SAFETY.
[2020-01-22] VITALS (7 sets, daily range): BP systolic 101–152; BP diastolic 53–76; PULSE 53–68; TEMP 97.6–98.8
--- NOTE | 2020-01-22 06:00 | NUR ---
TAKES AM MED WITHOUT PROBLEM. NO SEIZURE ACTIVITY THIS SHIFT.
[2020-01-22 07:04] LABS: HEMATOCRIT 37.3 % (37.0-47.0); HEMOGLOBIN 12.7 g/dl (12.5-16.0); MEAN CELL VOLUME 84 fl (80.0-100.0); MEAN CORPUSCULAR HEMOGLOBIN 29 pg (27.0-31.0); MEAN CORPUSCULAR HGB CONC 34 g/dl (33.0-37.0); MEAN PLATELET VOLUME 11.2 fl (7.4-10.4); PLATELET COUNT 182 K/mm3 (130-400); RED BLOOD COUNT 4.45 M/mm3 (4.10-5.30); REDCELL DISTRIBUTION WIDTH-CV 12.5 % (11.5-14.5)
--- NOTE | 2020-01-22 07:12 | NUR ---
PT SLEEPING IN BED, BED IN LOW, CALLL LIGHT WITHIN REACH, BED ALARM ON.
[2020-01-22 07:17] LABS: CALCIUM 9.2 mg/dL (8.4-10.2); CREATININE, serum 0.77 (0.52-1.25); POTASSIUM 3.8 mmol/L (3.4-5.0)
--- NOTE | 2020-01-22 18:34 | NUR ---
PT'S SIGNIFICANT OTHER UPDATED ON PLAN OF CARE. PT DENIED PAIN TODAY. WAS VERY PLEASANT AND ALER AND MOSTLY ORIENTED. PT DOES MAKE ODD STATEMENTS THAT DON'T FIT SOMETIMES.
--- NOTE | 2020-01-22 19:47 | NUR ---
Medicated with HS meds including Tylenol 650mg po for headache. Is alert, oriented x2. Bed alarm on for safety, ambulates with staff to bathroom, gait slightly unsteady, back to bed with supervision. Seizure precautions in place. SL to left forearm without redness or swelling.
--- NOTE | 2020-01-23 03:32 | NUR ---
Pt has used the call light each time when needing to go to the bathroom. Bed alarm on for safety.
[2020-01-23 04:22] VITALS: BP 133/80; PULSE 68; TEMP 97.9
[2020-01-23 06:49] LABS: BASO % 0.2 % (0.0-2.0); EOS # 0.2 (0.0-0.7); EOS % 2.5 % (0-4.0); GRAN % 71.3 % (42.2-75.2); HEMOGLOBIN 13.7 g/dl (12.5-16.0); LYMPH # 1.8 (1.2-3.4); LYMPH % 21.3 % (20.0-51.0); MEAN CELL VOLUME 84 fl (80.0-100.0); MEAN CORPUSCULAR HEMOGLOBIN 29 pg (27.0-31.0); MEAN CORPUSCULAR HGB CONC 34 g/dl (33.0-37.0); MEAN PLATELET VOLUME 11.2 fl (7.4-10.4); MONO # 0.4 (0.1-0.6); MONO % 4.5 % (1.7-9.3); PLATELET COUNT 198 K/mm3 (130-400); RED BLOOD COUNT 4.77 M/mm3 (4.10-5.30); REDCELL DISTRIBUTION WIDTH-CV 12.5 % (11.5-14.5)
--- NOTE | 2020-01-23 06:54 | NUR ---
PT SLEEPING IN BED AT BEDSIDE SHIFT REPORT, CALL LIGHT WITHIN REACH, BED IN LOW.
[2020-01-23 06:57] LABS: CALCIUM 9.6 mg/dL (8.4-10.2); CREATININE, serum 0.76 (0.52-1.25); POTASSIUM 3.8 mmol/L (3.4-5.0)
[2020-01-23 07:52] VITALS: BP 140/68; PULSE 65; TEMP 98.1
[2020-01-23 10:54] VITALS: BP 98/56; PULSE 70; TEMP 97.8
[2020-01-23 15:00] VITALS: BP 135/69; PULSE 72; TEMP 97.9
--- NOTE | 2020-01-23 17:31 | NUR ---
PT DOING WELL TODAY, DENIES PAIN. DID NOT EAT LUNCH BECAUSE SHE WAS NAUSEOUS SO NO INSULIN GIVEN AT THIS TIME. TUMS GIVEN AND PT DID NOT C/O NAUSEA AGAIN. AROUND 1500 PT STARTED BECOMING MORE CONFUSED AND HER SPEECH MAKING LESS SENSE. SHE KEPT SITTING UP ON EDGE OF BED AND CALLING HER FIANCE OVER AND OVER. PO ORDER FOR ATIVAN RECEIEVED BY RENAE MÁRQUEZ, 0.25 MG GIVEN. PT IS RESTING MORE AT THIS TIME.
[2020-01-23 19:56] VITALS: BP 139/71; PULSE 63; TEMP 98.3
--- NOTE | 2020-01-23 20:00 | NUR ---
Medicated with HS meds including Seroquel for anxiety. Is alert, oriented x3. Placed new SL to left forearm for telemetry protocol. Assisted to bathroom with standby, gait slightly wobbly. Back to bed with bed alarm on.
[2020-01-24] VITALS (7 sets, daily range): BP systolic 98–139; BP diastolic 45–90; PULSE 58–67; TEMP 97.8–98.3
[2020-01-24 06:42] LABS: CALCIUM 9.5 mg/dL (8.4-10.2); CREATININE, serum 1.05 (0.52-1.25); POTASSIUM 4.5 mmol/L (3.4-5.0)
[2020-01-24 06:43] LABS: BASO % 0.5 % (0.0-2.0); EOS # 0.4 (0.0-0.7); EOS % 4.5 % (0-4.0); GRAN # 4.6 (1.4-6.5); GRAN % 59.9 % (42.2-75.2); HEMATOCRIT 40.7 % (37.0-47.0); HEMOGLOBIN 13.5 g/dl (12.5-16.0); LYMPH # 2.2 (1.2-3.4); LYMPH % 28.1 % (20.0-51.0); MEAN CELL VOLUME 84 fl (80.0-100.0); MEAN CORPUSCULAR HEMOGLOBIN 28 pg (27.0-31.0); MEAN CORPUSCULAR HGB CONC 33 g/dl (33.0-37.0); MEAN PLATELET VOLUME 11.8 fl (7.4-10.4); MONO # 0.5 (0.1-0.6); MONO % 6.6 % (1.7-9.3); PLATELET COUNT 196 K/mm3 (130-400); RED BLOOD COUNT 4.82 M/mm3 (4.10-5.30); REDCELL DISTRIBUTION WIDTH-CV 12.5 % (11.5-14.5)
--- NOTE | 2020-01-24 08:15 | NUR ---
Patient lying in bed with eyes open. Patient is confused on location and dates. Reoriented patient. Denies pain. Assisted to upright position to eat breakfast. Denies additional needs.
--- NOTE | 2020-01-24 11:44 | NUR ---
Lying in bed working with speech therapy. Denies pain or further needs at this time.
--- NOTE | 2020-01-24 15:05 | NUR ---
Sitting on edge of bed with eyes open. Denies pain at this time. Patient requests to use bathroom, assist patient into bathroom. Voids and returns to room, washes hands, returns to bed. Provided fresh ice water. Patient expresses that she is upset that she is not able to go home. Reassurance and support provided to the patient. Denies additional needs at this time.
--- NOTE | 2020-01-24 16:45 | NUR ---
Fill Manager contacted Madiha at [facility] who advised they are not accepting admissions again and she should have an answer very soon about if they can clinically accept or not. Madiha did request updates after patient is re-evaluated by Dr. Todd, Psychiatrist today. If patient does not need a Guardian, Madiha would like for patient to designate DPOA-HC prior to admit. Since patient has made improvements in cognition and behaviors, DADA contacted [facility], [facility], [facility], [facility], and [facility] to request they re-review referral. DADA faxed clinical updates. Alia at [facility] advised they recently had three positives so she is unsure what their admission status is. DADA met with patient who was aware of her name, location, the current month, and year. Patient signed releases on information so that Jana, Financial Counselor can contact [facility] about the status of her Medicaid Application. Patient verbalized understanding that SW was working on placement and that she will need rehab before returning home. DADA reviewed referrals that have been sent and patient is agreeable to which ever placement option can take her. DADA contacted Sade at the [facility] Agency on Aging and left a message as patient will need a brain injury assessment before [facility] can accept. DADA reviewed Dr. Todd's note this afternoon which advised patient now has capacity to make her own health care decisions. DADA emailed Aix Administrator and attorneys with this update. DADA will continue to follow.
--- NOTE | 2020-01-24 17:06 | NUR ---
Receive call from the patient's life partner, Edna, and she says that the patient called her and told her that she was being discharged. Explain that I was in another patient room and that I would call her back. COntacted Edna back and explain that Dr. Todd was in and evaluated her and said that the patient is able to make her own decisions. Explain that she is not being discharged at this time and that it is still encouraged that she go to a facility for rehab. Edna verbalizes understanding. This nurse speaks with the patient and explains that Dr. Todd says that she can make her own decisions and that she is not being discharged at this time and that it is encouraged for her to go to a rehab facility to continue to get stronger. Patient says that she agrees. Patient sitting on edge of bed. Denies any additional needs at this time. Is ready to eat dinner.
--- NOTE | 2020-01-24 20:27 | NUR ---
PT AWAKE, READY FOR HS MEDS AND ASKS FOR SEROQUEL FOR ANXIETY AND SLEEP. TAKES MEDS WITHOUT PROBLEM. SL TO LEFT FOREARM FLUSHES WELL. IS ALERT AND ORIENTED X3. BED ALARM FOR SAFETY, GAIT REMAINS SLIGHTLY UNSTEADY.
[2020-01-25 04:00] VITALS: BP 107/61; PULSE 63; TEMP 97.9
[2020-01-25 07:22] VITALS: BP 109/52; PULSE 66; TEMP 97.6
--- NOTE | 2020-01-25 07:25 | NUR ---
Sitting on edge of bed eating breakfast. Assist into bathroom to urinate. Returns to room and washes hands and returns to side of bed. Patient is alert. For the most part oriented but does have a hard time picking words to say at times. Has scabs on arms that she occasionally picks at and they will bleed. Patient says that she would like to shower today but wants to wait until after her therapy sessions. Denies needs at this time.
[2020-01-25 07:59] LABS: HEMATOCRIT 37.4 % (37.0-47.0); HEMOGLOBIN 12.6 g/dl (12.5-16.0); MEAN CELL VOLUME 85 fl (80.0-100.0); MEAN CORPUSCULAR HEMOGLOBIN 29 pg (27.0-31.0); MEAN CORPUSCULAR HGB CONC 34 g/dl (33.0-37.0); MEAN PLATELET VOLUME 11.6 fl (7.4-10.4); PLATELET COUNT 179 K/mm3 (130-400); RED BLOOD COUNT 4.39 M/mm3 (4.10-5.30); REDCELL DISTRIBUTION WIDTH-CV 12.6 % (11.5-14.5)
[2020-01-25 08:07] LABS: CREATININE, serum 1.1 (0.52-1.25); POTASSIUM 4.5 mmol/L (3.4-5.0)
[2020-01-25 08:23] LABS: EOSINOPHIL 3 % (0-4); NEUTROPHILS 71 % (42.0-75.2); PLATELET ESTIMATE NORMAL (NORMAL)
[2020-01-25 08:25] LABS: LYMPHOCYTE 23 % (20.0-51.0)
--- NOTE | 2020-01-25 10:08 | NUR ---
I met with Nazia this morning. She reports that she is aware she had been very ill and is grateful that she has improved as much as she has. She certainly expresses ability to make her decisions--but will ask Edna, life partner for opinion and discussion. She has worked with Edna through multiple issues that troubled one or the other of them and feels that they are able to talk things out well. She shows great insight into going to rehab to try to imrpove the skills she will need to take care of herself and doesn't want to be a burden to Nazia. This couple does not have a car so traveling any distance is concerning. Pt seems quite pleased with her progess and is willing to work hard to be able to eventually return home with Edna. Support provided.
--- NOTE | 2020-01-25 10:57 | NUR ---
Yuki, social media marketer, asks this nurse to call nurse coordinator at [facility] as they had some questions from the nursing standpoint. Contacted them and spoke with Una. Abhay asked if patient was cooperative with therapies and taking medications. Explained that the patient is very cooperative with those tasks. Explain that when she was first brought to our unit it was hard to get her to follow tasks and she was impulsive and at times verbally abusive to the staff. Explained that for the past several days she has not acted in that manner and is very cooperative with all tasks.
[2020-01-25 11:31] VITALS: BP 126/73; PULSE 73; TEMP 98.1
--- NOTE | 2020-01-25 11:33 | NUR ---
OT in room with the patient. They will assist patient with taking shower and oral care. Patient denies needs at this time.
--- NOTE | 2020-01-25 13:54 | NUR ---
Sitting up in bed. Denies pain or needs. Speech in room to work with the patient.
--- NOTE | 2020-01-25 15:21 | NUR ---
Beam Builder Helper and DADA Saenz met with patient to discuss Durable Power of Cash Register Mechanic for Health Care. Patient verbalized understanding and stated in her own words that she would want her life partner, Edna Suárez to make healthcare decisions for her if she were unable to. Patient did not want to designate an alternate at this time. DADA and DADA Saenz provided witness signature. DADA provided original and copies to patient then placed a copy in patient's chart. DADA collaborated with Jana, Financial Counselor who advised she contacted [facility] and patient's application for Medicaid has been pending as patient did not provide her signature at the end of the application she submitted. DADA met with patient and obtained her signature on the last page of the application, the provided this to Jana who faxed it into [facility]. Jana advised SW that she would not be able to obtain a copy of the Medicaid application as it was originally submitted by patient. DADA contacted Madiha at [facility] and faxed clinical updates. Madiha advised that their physician can clinically accept patient, but that they would like patient's RN to contact their RN reviewer, Rekha to discuss patient. DADA coordinated phone call between patient's RN, Yamilet and RN, Rekha. Madiha states that they can clinically accept, but would need to work on financially accepting. Madiha states that she will have to check in with her financial team as they typically require a copy of the Medicaid Application. DADA then contacted Sade at the [facility] Agency on Aging to follow up on brain injury screening, which is another requirement of [place]. Sade advised that Shirring Machine Operator, Paula would conduct screening over the phone. DADA contacted Paula and left a message. DADA contacted patient's partner, Edna to provide update.
--- NOTE | 2020-01-25 15:30 | NUR ---
Cafe Operator faxed referral to [facility] in [place] and left a message for Tiara, Gas Combustion Engineer. DADA spoke with Mickie at [facility] who advised they are currently full and did not think they would consider someone who is Medicaid pending. DADA also contacted Amelie, [facility] Director to give referral.
--- NOTE | 2020-01-25 15:35 | NUR ---
System Archive Analyst contacted Paula, Cooker Tender and scheduled brain injury screening for tomorrow at 0900. Screening assessment will be done by phone and DADA will coordinate. DADA faxed records to Paula at [phone].
[2020-01-25 16:11] VITALS: BP 138/67; PULSE 62; TEMP 98.2
--- NOTE | 2020-01-25 18:05 | NUR ---
Sitting up in bed talking on cell phone and joking around with staff. Patient says that she wishes she could have a Big Mac. Would like to see if she could eat "normal food" and not have to have her meat mechanically ground. Explained that we could address this tomorrow with the speech therapist. Patient denies additional needs at this time.
--- NOTE | 2020-01-25 19:22 | NUR ---
RECEIVED CHANGE OF SHIFT REPORT FROM DAY SHIFT NURSE.
[2020-01-25 19:40] VITALS: BP 134/70; PULSE 65; TEMP 98.6
[2020-01-25 23:54] VITALS: BP 132/65; PULSE 86; TEMP 97.8
[2020-01-26 04:24] VITALS: BP 117/60; PULSE 63; TEMP 97.7
--- NOTE | 2020-01-26 05:27 | NUR ---
PATIENT RESTED QUIETLY THROUGH MOST OF SHIFT WITH NO C/O THROUGH MOST OF THE SHIFT AT THIS TIME. TELE IN PLACE. SALINE LOCK IN PLACE. OBSERVED BREATHING NONLABORED AND EVEN THROUGH MOST OF SHIFT.
[2020-01-26 06:40] LABS: BASO % 0.3 % (0.0-2.0); CALCIUM 9.4 mg/dL (8.4-10.2); CREATININE, serum 1.12 (0.52-1.25); EOS # 0.4 (0.0-0.7); EOS % 4.9 % (0-4.0); GRAN # 5.2 (1.4-6.5); GRAN % 58.2 % (42.2-75.2); HEMATOCRIT 38.9 % (37.0-47.0); HEMOGLOBIN 12.9 g/dl (12.5-16.0); LYMPH # 2.6 (1.2-3.4); LYMPH % 28.6 % (20.0-51.0); MEAN CELL VOLUME 86 fl (80.0-100.0); MEAN CORPUSCULAR HEMOGLOBIN 28 pg (27.0-31.0); MEAN CORPUSCULAR HGB CONC 33 g/dl (33.0-37.0); MEAN PLATELET VOLUME 11.9 fl (7.4-10.4); MONO # 0.7 (0.1-0.6); MONO % 7.8 % (1.7-9.3); PLATELET COUNT 185 K/mm3 (130-400); POTASSIUM 4.9 mmol/L (3.4-5.0); RED BLOOD COUNT 4.55 M/mm3 (4.10-5.30); REDCELL DISTRIBUTION WIDTH-CV 12.6 % (11.5-14.5)
--- NOTE | 2020-01-26 07:05 | NUR ---
Change of shift report given to day shift nurseYamilet.
[2020-01-26 08:04] VITALS: BP 121/73; PULSE 73; TEMP 97.4
--- NOTE | 2020-01-26 08:09 | NUR ---
Patient sitting up in bed eating breakfast. Alert and oriented x4. At times has difficulty finding appropriate words. Denies pain. Patient would like to get back on regular food and not mechanically ground food. Patient says that she does not have teeth or dentures and she has always been able to eat her food without difficulty. Explain that we will discuss further with speech. Patient denies additional needs at this time.
[2020-01-26 10:44] VITALS: BP 140/74; PULSE 58; TEMP 98.3
--- NOTE | 2020-01-26 10:46 | NUR ---
Patient up in halls ambulating with PT. Returns to room. Having a headache and would like Tylenol. Vital signs stable. Neuro checks WNL. Patient says that her mind is exhausted from all the questions she has been asked this morning to get into IPR. Will administer Tylenol at this time. Patient will rest in bed.
[2020-01-26 11:32] VITALS: BP 127/72; PULSE 46; TEMP 98.6
--- NOTE | 2020-01-26 12:44 | NUR ---
Sanitation Associate collaborated with Angelika of [facility] and was advised they will be able to accept patient later today. DADA met with patient to notify her and patient expressed that she was glad to be able to stay here in town. DADA also contacted patient's partner, Edna to provide update. Edna will be dropping off [facility] paperwork for SW as she needs some assistance with completing it. DADA contacted [facility], [facility], and [facility] to notify them that patient will discharge to [facility]. Patient had an assessment completed by Paula, Records Technician at the [facility] Agency on Aging this morning. Paula contacted DADA and advised that once patient's Medicaid is approved, patient will qualify for the TBI Waiver. DADA provided this update to patient and patient's partner, Edna. Patient to discharge to [facility] later today.
[2020-01-26 15:55] VITALS: BP 114/63; PULSE 61; TEMP 98.5
--- NOTE | 2020-01-26 16:07 | NUR ---
Patient to IPR status, room 334, at this time.
[2020-01-26] MEDS ORDERED: ZESTRIL30 MG PO (16:27)
[2020-01-26] MEDS ORDERED: LOVENOX 4040 MG/0.4 SQ (16:28)
[2020-01-26] MEDS ORDERED: PLAVIX 75MG TAB75 MG PO (16:29)
[2020-01-26] MEDS ORDERED: NICODERM C21 MG/PATC TD (16:29)
[2020-01-26] MEDS ORDERED: PROTONIX 40MG T40 MG PO (16:30)
[2020-01-26] MEDS ORDERED: SEROQUEL 2525 MG/TAB PO (16:32)
[2020-01-26] MEDS ORDERED: TYLENOL 325MG325 MG PO (16:33)
== END 2020-01-26 16:08 | DRG 65 ==
LOC: COL.ER 13:57 → SURG 20:25
PROVIDERS: Nurse Practitioner Family; Nurse Practitioner Primary Care; Physician Assistant; Student in an Organized Health Care Education/Training Program; ADMIT Hospitalist
DX: I63.9 Cerebral infarction, unspecified (principal); F05 Delirium due to known physiological condition; G93.49 Other encephalopathy; R00.1 Bradycardia, unspecified; I10 Essential (primary) hypertension; E78.5 Hyperlipidemia, unspecified; E11.9 Type 2 diabetes mellitus without complications; E87.6 Hypokalemia; Z20.828 Contact with and (suspected) exposure to other viral communicable diseases; F41.9 Anxiety disorder, unspecified; F17.210 Nicotine dependence, cigarettes, uncomplicated; F32.9 Major depressive disorder, single episode, unspecified; K30 Functional dyspepsia; Z88.2 Allergy status to sulfonamides; Z88.1 Allergy status to other antibiotic agents; Z79.4 Long term (current) use of insulin
CPT/HCPCS: 99231-AI; 99232-AI; 99239; A9585; C9113; G0378; J0360; J1650; J1815; J1953; J2060; J7030

== ENCOUNTER 2020-01-26 15:54 | Inpatient (IN) | payer OTHER ==
[~2020-01-26] VITALS: Ht 162.6 cm; Wt 67.4 kg
[~2020-01-26 15:54] MED LIST changes: +ASPIRIN 81M81 MG/TA2 PO; +BUSPAR DIVIDOSE15 MG PO; +KEPPRA 500MG500 MG PO; +LIPITOR 40MG TA40 MG PO; +NEURONTIN100 MG/CAP PO; +PRINIVIL5 MG PO; +ZOLOFT 100MG100 MG PO
--- NOTE | 2020-01-26 16:17 | NUR ---
Patient changed from inpatient room 325 to [facility] status room 334. Patient is alert and oriented x4. At times has difficulty choosing the appropriate word to use but is able to think and choose appropriate words. Denies pain at this time. Lungs clear to auscultation. Heart rate regular. Bowel sounds audible in all quadrants. Patient does have scabs noted to both arms, occasionally picks at them and causes them to bleed. Patient expresses that she is excited to get into rehabilitation and is ready to get stronger so that she can get home. Patient oriented to room. Denies needs.
[2020-01-26] MEDS ORDERED: ZESTRIL30 MG PO (16:27)
[2020-01-26] MEDS ORDERED: LOVENOX 4040 MG/0.4 SQ (16:28)
[2020-01-26] MEDS ORDERED: NICODERM C21 MG/PATC TD (16:29)
[2020-01-26] MEDS ORDERED: PLAVIX 75MG TAB75 MG PO (16:29)
[2020-01-26] MEDS ORDERED: PROTONIX 40MG T40 MG PO (16:30)
[2020-01-26] MEDS ORDERED: SEROQUEL 2525 MG/TAB PO (16:32)
[2020-01-26 16:33] VITALS: BP 114/63; PULSE 61; TEMP 98.5
[2020-01-26] MEDS ORDERED: TYLENOL 325MG325 MG PO (16:33)
--- NOTE | 2020-01-26 19:39 | NUR ---
RECEIVED CHANGE OF SHIFT REPORT FROM DAY SHIFT NURSETRAVIS.
[2020-01-27 04:42] VITALS: BP 118/63; PULSE 68; TEMP 97.6
--- NOTE | 2020-01-27 06:59 | NUR ---
CHANGE OF SHIFT REPORT GIVEN TO DAY SHIFT NURSECOLLIN.
[2020-01-27 08:09] VITALS: BP 120/60; PULSE 64; TEMP 98.5
--- NOTE | 2020-01-27 14:12 | NUR ---
Cnc Mill Set Up Operator met with patient to complete intake as patient is new to [facility]. Patient lives in [place] with her life partner, Edna Suárez (ph#[phone]). Patient has been utilizing the [facility] for primary care but is also open to switching to [facility] if it will benefit her. Patient has been using [facility] for medications. Patient is Medicaid/Disability pending and Jana Financial Counselor is working with [facility] to get approval. Patient had an assessment with the [facility] Agency on Aging and patient will qualify for the TBI Waiver once Medicaid is approved. Patient has Advance Directives which designate her life partner, Edna. Patient does not have any DME and advised she was independent with ADLS prior to being hospitalized. SW will continue to follow for discharge needs.
[2020-01-27 16:16] VITALS: BP 142/72; PULSE 72; TEMP 97.3
--- NOTE | 2020-01-27 20:00 | NUR ---
Patient sitting up in bed resting. Alert and oriented x 3. Assessment complete. Occassionally has difficulties choosing correct word. Scabs to BUE noted. Patient up to restroom with SBA and walker. Denies pain at this time. Denies further needs at this time.
[2020-01-28 04:46] VITALS: BP 116/72; PULSE 59; TEMP 98
--- NOTE | 2020-01-28 05:37 | NUR ---
Patient has done well throughout the night. Minimal needs. Has been up multiple times throughout the night to void. Patient ambulates with SBA and steady gait with walker. Denies pain or further needs at this time. Will report off to security shift manager.
--- NOTE | 2020-01-28 13:54 | NUR ---
REPORT TO CARLOS CEVALLOS.
--- NOTE | 2020-01-28 16:26 | NUR ---
Cripple Worker met with the patient to follow up before the weekend and introduce oneself. The patient states she is happy with her rehab but her legs do get tired toward the end of the day. She has no concerns or questions at this time.
[2020-01-28 18:27] VITALS: BP 125/85; PULSE 74; TEMP 97.5
--- NOTE | 2020-01-28 19:14 | NUR ---
PT ONLY ATE 20% OF DINNER BECAUSE OF AN UPSET SHE HAD WITH HER SIGNIFICANT OTHER. ONLY SCHEDULED 4 UNITS OF NOVOLOG GIVEN AT THAT TIME. PT DENIES PAIN TONIGHT. GIVEN PRN APAP AROUND 4 FOR A HEADACHE.
[2020-01-29 05:54] VITALS: BP 104/62; PULSE 61; TEMP 98.1
--- NOTE | 2020-01-29 07:36 | NUR ---
PT IN GOOD SPIRITS AT START OF SHIFT. CALLS FOR ASSIST TO BATHROOM. STATES SHE IS ON HER PERIOD. AMBULATES WITH USE OF WALKER AND STAND BY ASSIST. ALERT AND ORIENTATED. REQUESTED SEROQUEL 25MG AND TYLENOL 650MG AT HS. BED ALARM ON. TAKES MEDS WITH NO DIFFICULTY. LIGHTS OUT. CHECKED ON EVERY 2 HOURS DURING THE NIGHT. PT SLEPT WELL. REPOSITIONS SELF IN BED.
--- NOTE | 2020-01-29 08:22 | NUR ---
Patient resting in bed, call light in reach with bed alarm set. Patient denies pain at this time. Patient is a CGA with ambulation. She is independent with eating and does her own toileting cares. Patient tolerated diet well this morning. Patient currently working with OT at this time. Will continue to monitor.
--- NOTE | 2020-01-29 08:39 | NUR ---
Call placed to Dr. Ellis regarding low BP this morning. Hold Lisinopril per Dr. Ellis for today.
[2020-01-29 15:18] VITALS: BP 110/62; PULSE 60; TEMP 97.9
--- NOTE | 2020-01-29 15:20 | NUR ---
Patient was seen by Dr. Ellis. See new orders in EMR.
[2020-01-29 20:51] VITALS: BP 116/70; PULSE 65; TEMP 98.4
[2020-01-30 06:00] VITALS: BP 114/61; PULSE 61; TEMP 97.7
--- NOTE | 2020-01-30 07:00 | NUR ---
PT LAYING IN BED AT THIS TIME. HAS NO C/O PAIN OR DISCOMFORT. VSS. PT CALLS FOR ANY NEEDS. BED ALARM REMAINS ON, AND CALL LIGHT WITHIN REACH. ASSESSMENT COMPLETED. PT LUNG SOUNDS ARE CLEAR IN ALL LOBES. NO FURTHER CONCERNS AT THIS TIME.
--- NOTE | 2020-01-30 07:51 | NUR ---
PT HAS HAD AN UNEVENTFUL SHIFT. REQUEST SEROQUEL AND TYLENOL AT HS. HAS MOTRIN 200MG SCHEDULED EVERY 6 HRS. SLEEP WELL ALL NIGHT. CONTINUES ON HER PERIOD. CALL LIGHT IN REACH. BED ALARM ON.
--- NOTE | 2020-01-30 11:03 | NUR ---
PCT CONTACTED THIS RN ABOUT THE UNSTABLE AMBULATION OF THIS PT. PT HAS C/O ABDOMINAL PAIN D/T MENSES. PT ALSO STATES SHE HAS A HEADACHE. NEURO CHECK STABLE. PT RATES PAIN AT A 5/10. TYLENOL GIVEN PRN. NO FURTHER CONCERNS AT THIS TIME.
--- NOTE | 2020-01-30 15:01 | NUR ---
PT SLEEPING AT THIS TIME. NO CONCERNS.
[2020-01-30 16:37] VITALS: BP 129/79; PULSE 66; TEMP 98.1
--- NOTE | 2020-01-30 18:36 | NUR ---
PT HAD UNEVENTFUL DAY. SHE WAS UP TO THE BATHROOM WITH A STANDBY ASSIST MULTIPLE TIMES. HAS C/O PERIOD CRAMPING AND PAINS. PT HAS AN UNSTEADY GAIT, BUT WALKS WELL WITH THE WALKER. NO FURTHER CONCERNS WILL REPORT TO TUG BOAT CAPTAIN RN.
--- NOTE | 2020-01-30 20:00 | NUR ---
PATIENT RESTING IN BED. SOME COMPLAINTS OF SORENESS. PATIENT A&O AND CALLING APPROPIRATELY. PATIENT REQUESTS SEROQUEL AT BEDTIME.
--- NOTE | 2020-01-31 05:08 | NUR ---
PATIENT SLEPT WELL THROUGHOUT THE NIGHT WITH NO COMPLAINTS. VITAL SIGNS STABLE. NO COMPLAINTS OF PAIN.
[2020-01-31 06:07] VITALS: BP 101/81; PULSE 84; TEMP 97.4
[2020-01-31 06:07] LABS: BASO % 0.4 % (0.0-2.0); EOS # 0.3 (0.0-0.7); EOS % 4.7 % (0-4.0); GRAN # 4.2 (1.4-6.5); GRAN % 58.5 % (42.2-75.2); HEMATOCRIT 37.2 % (37.0-47.0); HEMOGLOBIN 12.4 g/dl (12.5-16.0); LYMPH # 2.1 (1.2-3.4); MEAN CELL VOLUME 85 fl (80.0-100.0); MEAN CORPUSCULAR HEMOGLOBIN 28 pg (27.0-31.0); MEAN CORPUSCULAR HGB CONC 33 g/dl (33.0-37.0); MEAN PLATELET VOLUME 11.6 fl (7.4-10.4); MONO # 0.5 (0.1-0.6); PLATELET COUNT 211 K/mm3 (130-400); RED BLOOD COUNT 4.37 M/mm3 (4.10-5.30); REDCELL DISTRIBUTION WIDTH-CV 12.6 % (11.5-14.5)
[2020-01-31 06:21] LABS: CALCIUM 9.4 mg/dL (8.4-10.2); CREATININE, serum 1.09 (0.52-1.25); MAGNESIUM 2.4 mg/dL (1.6-2.3); POTASSIUM 4.4 mmol/L (3.4-5.0)
--- NOTE | 2020-01-31 07:18 | NUR ---
PT SLEEPING IN BED AT BEDSIDE SHIFT REPORT. BED IN LOW, CALL LIGHT WITHIN REACH.
--- NOTE | 2020-01-31 13:52 | NUR ---
Admission QIM scores were reviewed by the team. Code of 5 chosen for oral hygiene was determined by team discussion to be the most usual performance before interventions for this patient during the assessment period. Code of 5 chosen for toilet hygiene was determined by team discussion to be the most usual performance for this patient during the assessment period. Code of 6 chosen for sit to lying was determined by team discussion to be the most usual performance for this patient during the assessment period. Code of 6 chosen for lying to sitting on side of bed was determined by team discussion to be the most usual performance for this patient during the assessment period. Code of 3 for chair/bed to chair transfers was determined by team discussion to be the most usual performance for this patient during the assessment period.--Amelie Royal, PD
[2020-01-31 17:47] VITALS: BP 124/68; PULSE 64; TEMP 98.3
--- NOTE | 2020-01-31 19:00 | NUR ---
RECEIVED CHANGE OF SHIFT REPORT FROM DAY SHIFT NURSE.
--- NOTE | 2020-01-31 19:32 | NUR ---
PT REPORTS PAIN FROM [facility]PS THIS AM AND TOOK SCHEDULED MOTRIN. BLEEDING IS MINIMAL TO SCANT TODAY. C/O CHAPPED LIPS, CHAP STICK GIVEN TO PT AND ORAL MOISTURIZER. PT DRINKING FREQUENTLY AND PEEING FREQUENTLY. PT REPORTS NEEDING TO PEE "A LOT" BUT PT ALSO REPORTS DRINKING A LOT. URINE LOOKS YELLOW, CLEAR, NO ODOR NOTED. PT NEEDING PAIN MEDICATION THROUGHOUT THE DAY.
[2020-02-01 05:45] VITALS: BP 106/66; PULSE 55; TEMP 98.5
--- NOTE | 2020-02-01 07:02 | NUR ---
PT SLEEPING IN BED AT BEDSIDE SHIFT REPORT.
--- NOTE | 2020-02-01 07:19 | NUR ---
CHANGE OF SHIFT REPORT GIVEN TO DAY SHIFT NURSECARLOS.
--- NOTE | 2020-02-01 15:04 | NUR ---
Follow-up visit; Patient states she is doing fine and thanked Diesel Plant Operator for looking in on her and wishing her God's blessings.
--- NOTE | 2020-02-01 15:14 | NUR ---
Cargo Service Agent contacted the patient's life partner, Edna to set up the family meeting. The meeting will be on Thursday 02/01 at 1000. DADA also informed Edna that the paperwork for the patient's employer was complete. Edna to pick it up on Friday, 02/01. DADA collaborated the above information with VANNESSA Kinsey Director.
[2020-02-01 16:07] VITALS: BP 129/76; PULSE 50; TEMP 98
--- NOTE | 2020-02-01 18:46 | NUR ---
PT MADE MOD I IN ROOM TODAY PER THERAPY. PT ENCOURAGED TO CALL IF STILL NEEDS ASSISTANCE. PT RECEIVED SUPPOSITORY WHICH WAS EFFECTIVE TODAY. PT DENIES PAIN.
--- NOTE | 2020-02-01 18:56 | NUR ---
RECEIVED CHANGE OF SHIFT REPORT FROM DAY SHIFT NURSE.
--- NOTE | 2020-02-01 20:00 | NUR ---
PATIENT UP INDEPENDENTLY IN ROOM WITH NO REPORTED PROBLEMS.
[2020-02-02 05:34] VITALS: BP 111/68; PULSE 54; TEMP 97.5
--- NOTE | 2020-02-02 07:39 | NUR ---
CHANGE OF SHIFT REPORT GIVEN TO DAY SHIFT NURSETRAVIS.
--- NOTE | 2020-02-02 11:08 | NUR ---
Weapons Officer attended team meeting for the patient. The team has set tentative discharge date for , 02/02. The patient will be needing a four wheeled walker. The team is recommending outpatient PT/OT/ST. The patient maybe needing a medication voucher. The patient has applied for insurance and is pending disablity. The patient will need to complete a financial assistance application. SW to assist with FAA application. After the team meeting, Weapons Officer attended family meeting for the patient. The patient's life partner, Edna was on speaker phone. Also present was Amelie, [facility] Director, PT/OT/ST staff. Amelie began the meeting by stating its purpose. PT/OT/ST staff provided patient progress. After family meeting, DADA faxed four wheeled walker order to [facility]. DADA contacted [facility] and they will be able to accomodate the patient for outpatient services. The patient's OT evaluation is scheduled for 02/15 at 11am. The therapy center will contact the patient to set up PT/ST appointment. DADA collaborated the above information with the patient's nurse.
--- NOTE | 2020-02-02 13:49 | NUR ---
Sdv Pilot/Navigator/Dds Operator met with the patient's life partner, Edna to review the team conference note. She was agreeable to the team's recommendations. Edna had no questions at this time.
[2020-02-02 16:41] VITALS: BP 150/59; PULSE 57; TEMP 97.9
--- NOTE | 2020-02-02 16:44 | NUR ---
PATIENT REPORTING A HEADACHE. VITALS OBTAINED AND ARE STABLE. PATIENT GIVEN PRN PO TYLENOL.
--- NOTE | 2020-02-02 18:35 | NUR ---
PATIENT HAD UNEVETFUL SHIFT. PATIENT WAS MOD-I IN THE ROOM DURING THE DAY. WILL REPORT OFF TO ONCOMING NURSE.
[2020-02-02] MEDS ORDERED: PLAVIX 75MG TAB75 MG PO (19:43)
[2020-02-02] MEDS ORDERED: LIPITOR 40MG TA40 MG PO (19:44)
[2020-02-02] MEDS ORDERED: ZOLOFT 100MG100 MG PO (19:45)
[2020-02-02] MEDS ORDERED: KEPPRA 500MG500 MG PO (19:45)
[2020-02-02] MEDS ORDERED: BUSPAR DIVIDOSE15 MG PO (19:48)
[2020-02-02] MEDS ORDERED: LEVEMIR100 U/ML SQ (19:50)
[2020-02-02] MEDS ORDERED: NOVOLOG 100U100 U/M1 SQ (19:50)
--- NOTE | 2020-02-02 21:00 | NUR ---
PT MOD IN ROOM WITH WALKER. UP TO BR. VOIDING W/O DIFFICULTY. HAD LBM YESTERDAY PER PT. EQUAL COVERING AND LINING SUPERVISOR. DENIES PAIN. CHEERFUL. NO NEEDS AT THIS TIME.
[2020-02-03 05:55] VITALS: BP 110/57; PULSE 59; TEMP 97.5
--- NOTE | 2020-02-03 10:52 | NUR ---
Patient resting on side of bed at this time, call light in reach and is independent in her room with a walker. This nurse called [facility] to call in orders for her discharge meds per request of Dr. Ellis. Patient was not able to pay for her meds, so the meds that were originally ordered for [facility] were cancelled and [facility] was called. Patient is aware of this change. Walker just arrived from [facility].
--- NOTE | 2020-02-03 11:05 | NUR ---
The patient's RN notified this SW that the patient is reporting that she cannot afford her meds and will need assistance. DADA met with the patient and she confirmed this. She is self pay. DADA contacted Aaliyah at [facility] and priced the medications. The total is $636.60. DADA faxed the med voucher to [facility] and provided the voucher to the patient. [facility] closes at 1300 today. 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 The patient verbalized understanding. DADA contacted and updated the patient's partner, Edna. Edna verbalized understanding and states that she will head to [facility] after she picks up the patient. DADA contacted Yamilet at [facility]. Yamilet reports that their bellman driver will be leaving in a few minutes to deliver the walker to the patient's room. DADA updated the patient's RN on the above information and how the patient's meds will need to be canceled at [facility] and called into [facility].
--- NOTE | 2020-02-03 12:58 | NUR ---
Patient's partner was called and she will be picking up patient's meds at [facility] prior to coming to pick patient up.
--- NOTE | 2020-02-03 14:31 | NUR ---
The patient is discharge home today, 02/02 with outpatient services at [facility] [place] [facility]. She will be receiving PT/OT/ST services. DADA faxed orders to [facility]. The patient was needing to complete a financial assistance application. DADA assisted with application and provided forms to Jana Blanton with finance. There are no additional needs at this time.
--- NOTE | 2020-02-03 18:44 | NUR ---
Patient Health Summary, Discharge Summary, and Home Meds printed and reviewed with patient and partner. Stressed importance of follow up appointments. [facility] med[facility] and direction from Retail Equipment Associate due to financial instability. Prescriptions that were originally sent to [facility] were cancelled per [facility] Request. Belongings gathered by RICKY/Romulo including glasses, cell phone, hot car charger and other personal items. Patient transported via wheelchair by [place] and seatbelted for ride home. Patient and partner denied any questions.
== END 2020-02-03 13:15 | disposition home or self-care (01) | DRG 57 ==
PROVIDERS: ADMIT Internal Medicine
DX: I69.351 Hemiplegia and hemiparesis following cerebral infarction affecting right dominant side (principal); G93.40 Encephalopathy, unspecified; G40.909 Epilepsy, unspecified, not intractable, without status epilepticus; I10 Essential (primary) hypertension; E11.9 Type 2 diabetes mellitus without complications; K30 Functional dyspepsia; R00.1 Bradycardia, unspecified; E87.6 Hypokalemia; F32.9 Major depressive disorder, single episode, unspecified; F41.9 Anxiety disorder, unspecified; Z73.6 Limitation of activities due to disability; R26.89 Other abnormalities of gait and mobility; E78.5 Hyperlipidemia, unspecified; F17.210 Nicotine dependence, cigarettes, uncomplicated; K59.00 Constipation, unspecified; Z79.4 Long term (current) use of insulin; Z79.82 Long term (current) use of aspirin; Z79.899 Other long term (current) drug therapy; Z88.2 Allergy status to sulfonamides; Z88.1 Allergy status to other antibiotic agents; Z88.8 Allergy status to other drugs, medicaments and biological substances
CPT/HCPCS: 99222-AI; 99231-AI; 99232-AI; 99239; J1650; J1815

== ENCOUNTER → 2020-04-20 | Outpatient (CLI) | payer SELFPAY ==
[~2020-04-20] MED LIST changes: +LOVENOX 4040 MG/0.4 SQ; +NICODERM C21 MG/PATC TD; +NOVOLOG 100U100 U/M1 SQ; +PLAVIX 75MG TAB75 MG PO; +PROTONIX 40MG T40 MG PO; +SEROQUEL 2525 MG/TAB PO; +TYLENOL 325MG325 MG PO; +ZESTRIL30 MG PO
--- NOTE | 2020-04-20 16:36 | NUR ---
[facility] and spoke with Mi's nurse, Cleo. Notified her of change of order request.
== END ==
LOC: DIA.ED
DX: E11.59 Type 2 diabetes mellitus with other circulatory complications (principal); Z79.4 Long term (current) use of insulin; I10 Essential (primary) hypertension; E78.5 Hyperlipidemia, unspecified
CPT/HCPCS: G0108